=== PATIENT | male | born 1990 | race Caucasian/White ===

== ENCOUNTER 2018-03-10 15:40 | Emergency (ER) | payer OTHER ==
[~2018-03-10] VITALS: Ht 182.9 cm; Wt 83.9 kg
[~2018-03-10 15:40] MED LIST: AZITHROMYCIN250 MG PO; COLD & FLU SEV1 EACH PO; GUAIFENESIN-CO118 ML PO; NAPROXEN500 MG PO; NORCO 5-325 TA1 EACH PO; PROAIR HFA8.5 GM INH; VICODIN 5-5001 EACH PO
== END 2018-03-10 16:40 | disposition home or self-care (01) ==
LOC: ED 15:40
DX: S23.41XA Sprain of ribs, initial encounter (principal); X58.XXXA Exposure to other specified factors, initial encounter; Y93.72 Activity, wrestling; F17.200 Nicotine dependence, unspecified, uncomplicated
CPT/HCPCS: 71046; 99283

== ENCOUNTER 2019-03-30 05:44 | Emergency (ER) | payer OTHER ==
[~2019-03-30] VITALS: Ht 182.9 cm; Wt 83.9 kg
== END 2019-03-30 06:23 | disposition home or self-care (01) ==
LOC: ED 05:44
DX: R09.89 Other specified symptoms and signs involving the circulatory and respiratory systems (principal); F17.200 Nicotine dependence, unspecified, uncomplicated
CPT/HCPCS: 99283

== ENCOUNTER 2020-07-12 10:34 | Emergency (ER) | payer OTHER, BC | END 2020-07-12 12:03 | disposition home or self-care (01) | LOC: ED 10:34 | DX: Z77.098 Contact with and (suspected) exposure to other hazardous, chiefly nonmedicinal, chemicals (principal); F17.200 Nicotine dependence, unspecified, uncomplicated; Y99.0 Civilian activity done for income or pay ==

== ENCOUNTER 2025-04-17 07:08 | Emergency (ER) | payer SELFPAY ==
[~2025-04-17] VITALS: Ht 182.9 cm; Wt 109.7 kg
[~2025-04-17 07:08] MED LIST changes: +BLEPH-105 ML OPTH
[2025-04-17] MEDS ORDERED: TETRACAINE HCL 0.5% 4 ML BTL OD SCH (07:45)
[2025-04-17] MEDS ORDERED: FLUORESCEIN SOD 1 EA STRP OD ONE (07:45)
[2025-04-17 08:00] VITALS: BP 155/109
[2025-04-17] MEDS ORDERED: ERYTHROMYCIN 3.5 GM HOME.PACK OP ONE (08:00)
== END 2025-04-17 08:00 | disposition home or self-care (01) ==
LOC: ED 07:08
DX: H00.12 Chalazion right lower eyelid (principal); F17.200 Nicotine dependence, unspecified, uncomplicated
CPT/HCPCS: 99283